=== PATIENT | female | born 1980 | race African-American/Black ===

== ENCOUNTER 2023-01-16 20:01 | Emergency (ER) | payer OTHER ==
[~2023-01-16] VITALS: Ht 162.6 cm; Wt 80.3 kg
[2023-01-16 20:08] VITALS: PULSE 90
[2023-01-16 21:12] VITALS: BP 158/104; TEMP 98.4; O2SAT 100
[2023-01-17] MEDS ORDERED: IBUPROFEN 800MG TABLET PO ONE (03:00)
[2023-01-17] MEDS ORDERED: CYCL5TAB MT (03:10)
[2023-01-17] MEDS ORDERED: IBUP-2030 MT (03:10)
[2023-01-17] MEDS ORDERED: IBUPROFEN 400MG TABLET PO NR (05:45)
== END 2023-01-17 03:36 | disposition home or self-care (01) ==
LOC: ER 20:01
DX: S16.1XXA Strain of muscle, fascia and tendon at neck level, initial encounter (principal); X58.XXXA Exposure to other specified factors, initial encounter; Y93.89 Activity, other specified; Y92.89 Other specified places as the place of occurrence of the external cause; Y99.8 Other external cause status; Z88.0 Allergy status to penicillin
CPT/HCPCS: 81025; 99283